=== PATIENT | male | born 1985 | race African-American/Black ===

== ENCOUNTER 2017-07-10 01:16 | Emergency (ER) | payer MEDICAID, OTHER ==
[~2017-07-10] VITALS: Ht 190.5 cm; Wt 150.0 kg
[2017-07-10] MEDS ORDERED: KETOROLAC 60MG/2ML VIAL IM ONE (03:30)
[2017-07-10 06:19] VITALS: BP 120/78
== END 2017-07-10 06:23 | disposition home or self-care (01) ==
LOC: ER 01:17
DX: S46.911A Strain of unspecified muscle, fascia and tendon at shoulder and upper arm level, right arm, initial encounter (principal); W18.30XA Fall on same level, unspecified, initial encounter; Y93.51 Activity, roller skating (inline) and skateboarding; Y92.89 Other specified places as the place of occurrence of the external cause; Y99.8 Other external cause status
CPT/HCPCS: 73030; 96372; 99284; J1885; Z7610; A4565

== ENCOUNTER 2017-08-05 14:15 | Emergency (ER) | payer MEDICAID, OTHER ==
[~2017-08-05] VITALS: Ht 190.5 cm; Wt 128.0 kg
[2017-08-05 14:25] VITALS: BP 143/93
[2017-08-05] MEDS ORDERED: KETOROLAC 60MG/2ML VIAL IM ONE (15:15)
[2017-08-05] MEDS ORDERED: CYCLOBENZAPRINE 10MG TABLET PO ONE (15:15)
== END 2017-08-05 16:03 | disposition home or self-care (01) ==
LOC: ER 15:25
DX: S16.1XXA Strain of muscle, fascia and tendon at neck level, initial encounter (principal); M25.511 Pain in right shoulder; J45.909 Unspecified asthma, uncomplicated; F17.200 Nicotine dependence, unspecified, uncomplicated; F12.10 Cannabis abuse, uncomplicated; V89.2XXA Person injured in unspecified motor-vehicle accident, traffic, initial encounter; Y92.410 Unspecified street and highway as the place of occurrence of the external cause; Y93.89 Activity, other specified; Y99.8 Other external cause status
CPT/HCPCS: 96372; 99283; J1885; Z7610

== ENCOUNTER 2017-09-14 14:53 | Emergency (ER) | payer MEDICAID, OTHER ==
[~2017-09-14] VITALS: Ht 190.5 cm; Wt 127.0 kg
[2017-09-14 14:54] VITALS: BP 146/86
== END 2017-09-14 16:12 | disposition home or self-care (01) ==
LOC: ER 15:30
DX: Z51.89 Encounter for other specified aftercare (principal); S46.911D Strain of unspecified muscle, fascia and tendon at shoulder and upper arm level, right arm, subsequent encounter; X58.XXXD Exposure to other specified factors, subsequent encounter; R03.0 Elevated blood-pressure reading, without diagnosis of hypertension
CPT/HCPCS: 99281

== ENCOUNTER 2018-08-30 13:55 | Emergency (ER) | payer MEDICAID ==
[~2018-08-30] VITALS: Ht 188 cm; Wt 90.0 kg
[2018-08-30 17:07] VITALS: BP 130/80
== END 2018-08-30 17:09 | disposition home or self-care (01) ==
LOC: ER 13:55
DX: G51.0 Bell's palsy (principal)
CPT/HCPCS: 99283

== ENCOUNTER 2019-02-06 00:25 | Emergency (ER) | payer MEDICAID | END 2019-02-06 01:17 | disposition left against medical advice (07) | LOC: ER 00:25 | DX: Z53.21 Procedure and treatment not carried out due to patient leaving prior to being seen by health care provider (principal) ==

== ENCOUNTER 2020-11-29 00:53 | Emergency (ER) | payer MEDICAID, OTHER ==
[~2020-11-29] VITALS: Ht 190.5 cm; Wt 106.3 kg
[2020-11-29] MEDS ORDERED: DOCUSATE SODIUM 100MG CAPSULE PO SCH (02:45)
[2020-11-29] MEDS ORDERED: DOCUSATE SODIUM 250MG CAPSULE PO ONE (02:45)
[2020-11-29 02:52] LABS: BASOPHILS % 1.1 % (0.0-2.0); EOSINOPHILS % 0.7 % (0.0-5.0); HEMATOCRIT. 44.3 % (42.0-52.0); HEMOGLOBIN. 15.9 g/dL (14.0-18.0); LYMPHOCYTES % 23.8 % (20.0-50.0); MEAN CORPUSCULAR HEMOGLOBIN 33.6 pg (28.0-32.0); MEAN CORPUSCULAR VOLUME 93.9 fL (80.0-94.0); MEAN PLATELET VOLUME 7.6 fl (7.4-10.4); MONOCYTES % 10.7 % (2.0-8.0); NEUTROPHILS % 63.7 % (40.0-76.0); PLATELET 250 x1000/uL (130-400); RED BLOOD CELL COUNT 4.72 mill/uL (4.7-6.1); RED CELL DISTRIBUTION WIDTH 12.7 % (11.6-14.6)
[2020-11-29 03:01] LABS: CHLORIDE 106 mEq/L (98-107)
[2020-11-29] MEDS ORDERED: DOCU-150 MT (03:32)
[2020-11-29] MEDS ORDERED: POTASSIUM CHLORIDE 20MEQ TABLET SR PO ONE (03:45)
[2020-11-29 04:00] VITALS: BP 156/80
== END 2020-11-29 04:15 | disposition home or self-care (01) ==
LOC: ER 00:53
DX: G47.00 Insomnia, unspecified (principal); K59.00 Constipation, unspecified; E87.6 Hypokalemia
CPT/HCPCS: 36415; 73120; 80048; 85025; 93005; 99285